=== PATIENT | male | born 1990 | race Asian ===

== ENCOUNTER 2020-11-25 06:13 | Emergency (ER) | payer BC ==
[~2020-11-25] VITALS: Ht 172.7 cm; Wt 78.0 kg
[2020-11-25 06:15] VITALS: BP 132/97; Ht 172.7 cm; Wt 78.0 kg
[2020-11-25] MEDS ORDERED: [UNRECOGNIZED DRUG - OTHER] MM (08:03)
[2020-11-25] MEDS ORDERED: ACETAMINOPHEN-H1 TA1 PO (08:03)
[2020-11-25] MEDS ORDERED: ZOF4 PO (08:03)
== END 2020-11-25 08:31 | disposition home or self-care (01) ==
LOC: ED 06:13
DX: R13.10 Dysphagia, unspecified (principal)